=== PATIENT | male | born 1970 | race Two or more races ===

== ENCOUNTER 2023-12-26 09:52 | Emergency (ER) | payer BC, OTHER ==
[~2023-12-26] VITALS: Ht 175.3 cm; Wt 81.6 kg
[2023-12-26] MEDS: IV NS 1000 ML 1,000 ML IV ONE (10:12)
[2023-12-26] MEDS ORDERED: KETOROLAC TROMETHAMINE 30 MG INJ ONE (10:14)
[2023-12-26] MEDS ORDERED: HYDROMORPHONE 1 MG/1 ML DISP.SYRIN ONE (10:15)
[2023-12-26] MEDS: KETOROLAC TROMETHAMINE 30 MG INJ IVP ONE (10:15)
[2023-12-26 10:16] LABS: *BILIRUBIN,URIN NEGATIVE (NEGATIVE); *BLOOD, URINE 2+ (NEGATIVE); *CLARITY,URINE CLEAR (CLEAR); *COLOR,URINE YELLOW (YELLOW); *KETONES,URINE NEGATIVE (NEGATIVE); *PROTEIN,URINE NEGATIVE (NEGATIVE); *UROBILINOGEN,URINE 0.2 E.U./dl (NORMAL); LEUKOCYTE ESTERASE ,URINE NEGATIVE (NEGATIVE); NITRITE, URINE NEGATIVE (NEGATIVE); PH,URINE 5.5 (5.0-8.0); UGLUCOSE NEGATIVE (NEGATIVE)
[2023-12-26] MEDS: HYDROMORPHONE 1 MG/1 ML DISP.SYRIN IV ONE (10:17)
[2023-12-26 10:23] LABS: BASOPHILS # (AUTO) 0.1 K/UL (0.0-0.2); BASOPHILS % (AUTO) 0.8 % (0.0-2.0); EOSINOPHILS # (AUTO) 0.2 K/uL (0.0-0.7); EOSINOPHILS % (AUTO) 2.2 % (0.0-7.0); HEMATOCRIT 45.3 % (36.7-47.1); HEMOGLOBIN 15.3 g/dL (12.5-16.3); LYMPHOCYTES % (AUTO) 28.8 % (20.5-51.5); MEAN CORPUSCULAR HEMOGLOBIN 27.6 uug (23.8-33.4); MEAN CORPUSCULAR HGB CONC 34 g/dL (32.5-36.3); MEAN CORPUSCULAR VOLUME 81.7 fL (73.0-96.2); MONOCYTES # (AUTO) 0.5 K/uL (0.1-1.30); MONOCYTES % (AUTO) 7.2 % (0.0-11.0); NEUTROPHILS # (AUTO) 4.3 K/uL (1.8-8.9); PLATELET COUNT (AUTO) 273 K/uL (152-348); RED BLOOD CELL COUNT(AUTO) 5.54 MIL/uL (4.06-5.63); RED CELL DISTRIBUTION WIDTH 14.4 % (12.1-16.2)
[2023-12-26 10:32] LABS: CALCIUM 8.5 mg/dL (8.5-10.1); CREATININE 1.1 mg/dL (0.6-1.3); POTASSIUM 3.8 mmol/L (3.5-5.1)
[2023-12-26 11:01] LABS: BACTERIA,URINE MODERATE /HPF (NONE SEEN); RBC,URINE 20-50 /HPF (0-3); SQUAMOUS EPITHELIAL CELL,UR FEW /HPF (NONE SEEN); WBC,URINE 0-3 /HPF (0-3); YEAST,URINE BUDDING YEAST /HPF (NONE SEEN)
[2023-12-26 11:02] LABS: CALCIUM OXALATE CRYSTALS,UR FEW /HPF (NONE SEEN)
[2023-12-26 11:02] LABS: DIFFERENTIAL COMMENT 1
[2023-12-26] MEDS ORDERED: KETO10TA2 PO (11:22)
[2023-12-26] MEDS ORDERED: HYDR-3980 PO (11:22)
[2023-12-26] MEDS ORDERED: PROCHLORPERAZINE EDISYLATE 10 MG/2 ML VIAL ONE (11:32)
[2023-12-26] MEDS: PROCHLORPERAZINE EDISYLATE 10 MG/2 ML VIAL IV ONE (11:37)
[2023-12-26] MEDS ORDERED: PROC10TA29 PO (11:41)
[2023-12-26] MEDS ORDERED: FLAS1EAC2 MC (12:27)
[2023-12-26] MEDS ORDERED: FLAS1EAC2 TP (12:27)
[2023-12-26 12:45] VITALS: O2SAT 98
== END 2023-12-26 13:00 | disposition home or self-care (01) ==
LOC: ER 09:52
DX: N20.1 Calculus of ureter (principal); E88.810 Metabolic syndrome; Z79.899 Other long term (current) drug therapy; Z88.5 Allergy status to narcotic agent; Z88.1 Allergy status to other antibiotic agents
CPT/HCPCS: 99285; 74176; 96374; 96375; 96361; 80048; 81001; 83036; 85025; 36415; 87086; J1885; J0780; J1170; J7040; A4606; A4663